=== PATIENT | female | born 1945 ===

== ENCOUNTER 2017-08-20 09:23 | Inpatient (IN) | payer MEDICARE, MEDICAID ==
[2017-08-20 09:23] VITALS: BMI 26.2
[2017-08-20 12:09] LABS: BASO # 0.1 K/uL (0.0-0.2); EOS # 0.1 K/uL (0.0-0.7); HEMOGLOBIN 13.8 g/dL (11.0-16.0); LYMPH # 1.8 K/uL (1.0-4.3); LYMPH % 21.4 % (20.0-40.0); MEAN CELL VOLUME 78.2 fL (81.0-99.0); MEAN CORPUSCULAR HEMOGLOBIN 25.9 pg (27.0-31.0); MEAN CORPUSCULAR HGB CONC 33.1 g/dL (33.0-37.0); MEAN PLATELET VOLUME 7.5 fL (7.2-11.7); MONO # 0.3 K/uL (0.0-0.8); NEUT % 72.6 % (50.0-75.0); RBC 5.34 Mil/uL (3.80-5.20); RED CELL DISTRIBUTION WIDTH 15.3 % (11.5-14.5); WHITE BLOOD COUNT 8.3 K/uL (4.8-10.8)
[2017-08-20 12:18] LABS: SQUAMOUS EPITHIAL 1 /hpf (0-5); URINE BILIRUBIN NEGATIVE (NEGATIVE); URINE BLOOD NEGATIVE (NEGATIVE); URINE CLARITY Clear (Clear); URINE COLOR Straw (YELLOW); URINE GLUCOSE (UA) NORMAL (Normal); URINE LEUKOCYTE ESTERASE NEG Leu/uL (Negative); URINE NITRATE NEGATIVE (NEGATIVE); URINE PROTEIN NEGATIVE (NEGATIVE); URINE UROBILINOGEN NORMAL mg/dL (0.2-1.0)
--- NOTE | 2017-08-20 12:39 | RAD ---
HISTORY: abd pain COMPARISON: Chest x-ray performed 10/22/15 TECHNIQUE: Chest PA and lateral FINDINGS: LUNGS: Mild pulmonary venous congestion. Please note that chest x-ray has limited sensitivity for the detection of pulmonary masses. PLEURA: Small left pleural effusion. No definite pneumothorax . CARDIOVASCULAR: Mild cardiomegaly. Ectatic aorta. Atherosclerotic calcifications. OSSEOUS STRUCTURES: Osseous demineralization. Degenerative changes. VISUALIZED UPPER ABDOMEN: Unremarkable. OTHER FINDINGS: None. IMPRESSION: Small left pleural effusion. Mild pulmonary venous congestion.
--- NOTE | 2017-08-20 12:44 | C.PDOC ---
History Of Present Illness 71 YO female w/PMHx of HTN, ventral hernia, was seen by few days ago and sent to ED for further evaluation of abdominal pain. Pt reports, "had hernia repair few yesterday ago". Pt sts, developed mild intermittent abdominal pain around umbilicus. Otherwise, pt denies fever, chills, CP, SOB, dyspnea, diaphoresis, palpitation, food intolerance, V/D, back pain, UTI sx. As per family, pt had medical clearance and was sent to ED by for possible surgical repair. BP noted high on triage, pt admits, " very nervous now", took her BP medication at home [employer]. Time Seen by Provider: 08/20/17 10:22 Chief Complaint (Nursing): Abdominal Pain History Per: Patient, Family Past Medical History Reviewed: Historical Data, Nursing Documentation, Vital Signs Vital Signs: Last Vital Signs Temp 97.9 F 08/20/17 17:14 Pulse 72 08/20/17 18:00 Resp 15 08/20/17 18:00 BP 150/78 08/20/17 18:00 Pulse Ox 99 08/20/17 18:00 - Medical History PMH: Anxiety, Asthma, HTN Surgical History: Hernia Repair (ventral) - [facility] Procedures REPAIR ABDOMINAL WALL, OPEN APPROACH (10/27/15) Family History: States: Unknown Family Hx - Social History Hx Tobacco Use: No Hx Alcohol Use: No Hx Substance Use: No - Immunization History Hx Tetanus Toxoid Vaccination: No Hx Influenza Vaccination: Yes Hx Pneumococcal Vaccination: Yes Review Of Systems Except As Marked, All Systems Reviewed And Found Negative. Constitutional: Negative for: Fever, Chills ENT: Negative for: Throat Pain Cardiovascular: Negative for: Chest Pain, Palpitations, Edema, Light Headedness Respiratory: Negative for: Cough, Shortness of Breath Gastrointestinal: Positive for: Abdominal Pain. Negative for: Nausea, Vomiting , Diarrhea, Constipation, Melena, Hematochezia, Hematemesis Genitourinary: Negative for: Dysuria, Frequency Musculoskeletal: Negative for: Neck Pain, Back Pain Skin: Negative for: Rash Neurological: Negative for: Altered Mental Status Physical Exam - Physical Exam Appears: Well, Non-toxic, No Acute Distress Skin: Normal Color, Warm, Dry, No Rash Head: Normacephalic Eye(s): bilateral: PERRL Nose: No Discharge Oral Mucosa: Moist Throat: No Drooling Neck: Trachea Midline, Supple Cardiovascular: Rhythm Regular Respiratory: No Decreased Breath Sounds, No Accessory Muscle Use, No Stridor, No Wheezing Gastrointestinal/Abdominal: Soft, Tenderness (mild periumbilical), No Distention , No Guarding, Hernia (non-reducable ventral) Back: No CVA Tenderness Extremity: Normal ROM, No Deformity, No Swelling Neurological/Psych: Oriented x3, Normal Speech ED Course And Treatment - Laboratory Results Result Diagrams: 08/20/17 12:01 08/20/17 12:01 ECG: Interpreted By Me, Viewed By Me Interpretation Of ECG: SR@72/min,LAD, T wave inversion in III, AVF, V4-6, no acute ST-T changes. O2 Sat by Pulse Oximetry: 97 Pulse Ox Interpretation: Normal - Radiology CXR: Interpreted by Me, Viewed By Me, Read By Radiologist (small left pleural effusion) Progress Note: Blood work review and appears without acute abnormalities. case discussed with and admission to his service recommend. Disposition - Disposition Disposition: HOSPITALIZED Disposition Time: 12:51 Condition: STABLE - Clinical Impression Clinical Impression: Incarcerated ventral hernia
[2017-08-20 13:00] LABS: ALB/GLOB RATIO 1.1 (1.0-2.1); ALBUMIN 4.5 g/dL (3.5-5.0); ALT/SGPT 21 U/L (9-52); AST/SGOT 29 U/L (14-36); BLOOD UREA NITROGEN 7 mg/dL (7-17); CALCIUM 9.4 mg/dl (8.6-10.4); GFR AFRICAN-AMERICAN > 60; GFR NON-AFRICAN AMERICAN > 60
[2017-08-20 13:14] LABS: LIPASE 55 U/L (23-300)
[2017-08-20] MEDS ORDERED: Lactated Ringer's 1,000 ML IV ONE ×2 (15:19)
[2017-08-20] MEDS ORDERED: Lidocaine 1% Inj (20ml) ONE (15:26)
[2017-08-20] MEDS ORDERED: ceFAZolin IV 1 gm in Dextrose 0 GM/0 ML BAG IVPB ONE (15:26)
[2017-08-20] MEDS ORDERED: ceFAZolin IV 2 gm in Dextrose 2 GM/50 ML BAG IVPB ONE (15:26)
[2017-08-20] MEDS ORDERED: Bupivacaine HCl 0.25% PF (10 ml) Inj ONE (15:26)
[2017-08-20] MEDS ORDERED: Propofol 10 mg/ml Inj (20 ML) ONE (16:00)
[2017-08-20] MEDS ORDERED: Lidocaine Hydrochloride 5 ML INJ ONE (16:01)
[2017-08-20] MEDS: HYDROmorphone 0.5 mg/0.5 ml ISec IVP PRN ×3 (17:33→19:35)
[2017-08-20] MEDS ORDERED: Neostigmine Methylsulfate 3mg/3ml Syringe IV ONE (17:37)
[2017-08-20] MEDS: Dextrose 5%/0.45% NS 1,000 ML IV SCH (19:30)
[2017-08-20] MEDS: Oxycodone/Acetaminophen 5/325 mg Tab PO PRN (21:23)
[2017-08-20] MEDS ORDERED: Potassium Chloride 20 mEq/15 ml LIQ UD PO ONE (21:33)
[2017-08-20 21:44] VITALS: RESP 20
[2017-08-20] MEDS: Enoxaparin 30 mg Syringe SC SCH (22:30)
--- NOTE | 2017-08-21 01:56 | CP.PCM.CON ---
<Kemar Talamantes - Last Filed: 08/21/17 01:52> History of Present Illness - History of Present Illness History of Present Illness: History provided with help of patient's daughter at bedside. Patient is a 71 year old female who is s/p ventral hernia repair today. Patient saw Dr. Clark in office and was sent to the ED for a possible hernia repair. She had a previous incarcerated hernia repair without mesh in October [address] Clark. She subsequently developed another hernia, saw Dr. Clark in office recently and was told that she needs it repaired. She denies any preceding symptoms. Patient denies fever, chills, SOB, cough, chest pain, palpitations, abdominal pain, nausea, vomiting, urinary changes. Last bowel movement was 2 days ago; melena/hematochezia. Patient has a history of anxiety but denies anxiety at present. Patient had an influenza shot 1 month ago. PMD: Dr. Willams PMH: HTN, anxiety PSH: x 2; incarcerated hernia repair w/o mesh October 2015; ventral hernia repair w/ mesh July 2017 Medications: Diltiazem 240mg daily; Xanax (unknown dose) 1 tab a few times per week as needed for anxiety Allergies: denies Family History: Mother at age 94 with no medical problems; Father at age 65 of [place]; 2 healthy children; no family history of CVA/CA Social History: originally from [facility]; denies current/prior tobacco use; denies current/prior ETOH; denies current/prior recreational drug use; ; lives with daughter Code status: full code No advance directive In the event that she is unable to make health care decisions for herself, patient wants her daughter Mynor Wilder to make decisions for her ([phone]) Review of Systems - Review of Systems All systems: reviewed and no additional remarkable complaints except (as stated in HPI) Past Patient History - Past Medical History & Family History Past Medical History?: Yes - Past Social History Smoking Status: Never Smoked - CARDIAC Hx Hypertension: Yes - PULMONARY Hx Asthma: Yes - NEUROLOGICAL Hx Dizziness: Yes - MUSCULOSKELETAL/RHEUMATOLOGICAL Hx Falls: No - PSYCHIATRIC Hx Anxiety: Yes Hx Substance Use: No - SURGICAL HISTORY Hx Surgeries: Yes Hx Section: Yes Hx Herniorrhaphy: Yes (VENTRAL HERNIA REPAIR(10/27/15)) - ANESTHESIA Hx Anesthesia: Yes Hx Anesthesia Reactions: No Hx Malignant Hyperthermia: No Meds Allergies/Adverse Reactions: Allergies Allergy/AdvReac Type Severity Reaction Status Date / Time No Known Allergies Allergy Verified 07/05/17 08:17 - Medications Medications: Current Medications Docusate Sodium (Colace) 100 mg PO BID COUNTS INCLUDE 234 BEDS AT THE [facility] Enoxaparin Sodium (Lovenox) 30 mg SC 1000,2200 COUNTS INCLUDE 234 BEDS AT THE [facility] Last Admin: 08/20/17 22:30 Dose: Not Given Dextrose/Sodium Chloride (Dextrose 5%/0.45% Ns 1000 Ml) 1,000 mls @ 60 mls/hr IV .[id number] COUNTS INCLUDE 234 BEDS AT THE [facility] Last Admin: 08/20/17 19:30 Dose: 100 mls Cefazolin Sodium 1,000 mg/ (Sodium Chloride) 100 mls @ 100 mls/hr IVPB Q8H COUNTS INCLUDE 234 BEDS AT THE [facility] Last Admin: 08/21/17 01:45 Dose: 100 mls/hr Ondansetron HCl (Zofran Inj) 4 mg IVP Q6 PRN PRN Reason: Nausea/Vomiting Oxycodone/Acetaminophen (Percocet 5/325 Mg Tab) 2 tab PO Q4H PRN PRN Reason: pain Stop: 08/23/17 17:08 Last Admin: 08/20/17 21:23 Dose: 2 tab Pantoprazole Sodium (Protonix Inj) 40 mg IVP DAILY COUNTS INCLUDE 234 BEDS AT THE [facility] Physical Exam - Constitutional Appears: Well, No Acute Distress - Head Exam Head Exam: ATRAUMATIC, NORMAL INSPECTION - Eye Exam Eye Exam: EOMI, PERRL - ENT Exam ENT Exam: Mucous Membranes Moist - Neck Exam Neck exam: Positive for: Normal Inspection - Respiratory Exam Respiratory Exam: Clear to Auscultation Bilateral, NORMAL BREATHING PATTERN. absent: Rales, Rhonchi, Wheezes - Cardiovascular Exam Cardiovascular Exam: REGULAR RHYTHM, +S1, +S2. absent: JVD, Systolic Murmur - GI/Abdominal Exam GI & Abdominal Exam: Normal Bowel Sounds, Soft, Tenderness Additional comments: horizontal dressing across mid-abdomen that is C/D/I with no bleeding or purulence noted. - Extremities Exam Extremities exam: Positive for: normal inspection - Neurological Exam Neurological exam: Oriented x3 - Skin Skin Exam: Intact, Normal Color, Warm Results - Vital Signs Recent Vital Signs: Last Vital Signs Temp 98 F 08/20/17 21:42 Pulse 102 H 02/26/18 21:42 Resp 20 08/20/17 21:42 BP 117/62 08/20/17 21:42 Pulse Ox 96 08/20/17 21:42 - Labs Result Diagrams: 08/20/17 12:01 08/20/17 12:01 Labs: Laboratory Results - last 24 hr 08/20/17 08/20/17 08/20/17 12:01 12:01 12:01 WBC 8.3 RBC 5.34 H Hgb 13.8 Hct 41.7 MCV 78.2 L MCH 25.9 L MCHC 33.1 RDW 15.3 H Plt Count 456 H MPV 7.5 Neut % (Auto) 72.6 Lymph % (Auto) 21.4 Elliott % (Auto) 4.0 Eos % (Auto) 1.0 Baso % (Auto) 1.0 Neut # (Auto) 6.0 Lymph # (Auto) 1.8 Elliott # (Auto) 0.3 Eos # (Auto) 0.1 Baso # (Auto) 0.1 Sodium 138 Potassium 3.3 L Chloride 98 Carbon Dioxide 26 Anion Gap 17 BUN 7 Creatinine 0.6 L Est GFR ( Amer) > 60 Est GFR (Non-Af Amer) > 60 Random Glucose 118 H Calcium 9.4 Total Bilirubin 1.5 H AST 29 ALT 21 Alkaline Phosphatase 106 Total Protein 8.6 H Albumin 4.5 Globulin 4.1 H Albumin/Globulin Ratio 1.1 Lipase 55 Urine Color Straw Urine Clarity Clear Urine pH 7.0 Ur Specific [place] 1.012 Urine Protein Negative Urine Glucose (UA) Normal Urine Ketones 1+ H Urine Blood Negative Urine Nitrate Negative Urine Bilirubin Negative Urine Urobilinogen Normal Ur Leukocyte Esterase Neg Urine WBC (Auto) 1 Urine RBC (Auto) < 1 Ur Squamous Epith Cells 1 Assessment & Plan - Assessment and Plan (Free Text) Assessment: 71 year old female s/p ventral hernia repair, general medicine consulted for medical management: S/P Ventral Hernia Repair Management per surgery Dr. Clark Cefazolin 1000mg IVPB Q8H Dextrose/Sodium Chloride 1000mL IV [id number] Zofran 4mg IVP Q6H prn Percocet 5/325 2 tab PO Q4H prn Colace 100mg PO BID Small Pleural Effusion on CXR No SOB, cough, lungs clear on exam CXR shows small left pleural effusion HTN Continue home medications: Diltiazem 240mg PO daily Hypokalemia Repleted with Potassium Chloride 20 mEq once Follow-up AM labs Elevated Glucose No hx of DM Accuchecks ACHS Prophylaxis GI: Pantoprazole (Protonix) 40mg IVP daily DVT: SCDs; Enoxaparin (Lovenox) 30mg SC Heart healthy Diet <Guillen,Franklin Holcomb - Last Filed: 08/21/17 06:02> Meds - Medications Medications: Current Medications Docusate Sodium (Colace) 100 mg PO BID COUNTS INCLUDE 234 BEDS AT THE [facility] Enoxaparin Sodium (Lovenox) 30 mg SC 1000,2200 COUNTS INCLUDE 234 BEDS AT THE [facility] Last Admin: 08/20/17 22:30 Dose: Not Given Dextrose/Sodium Chloride (Dextrose 5%/0.45% Ns 1000 Ml) 1,000 mls @ 60 mls/hr IV .[id number] COUNTS INCLUDE 234 BEDS AT THE [facility] Last Admin: 08/20/17 19:30 Dose: 100 mls Cefazolin Sodium 1,000 mg/ (Sodium Chloride) 100 mls @ 100 mls/hr IVPB Q8H COUNTS INCLUDE 234 BEDS AT [facility] Last Admin: 08/21/17 01:45 Dose: 100 mls/hr Ondansetron HCl (Zofran Inj) 4 mg IVP Q6 PRN PRN Reason: Nausea/Vomiting Oxycodone/Acetaminophen (Percocet 5/325 Mg Tab) 2 tab PO Q4H PRN PRN Reason: pain Stop: 08/23/17 17:08 Last Admin: 08/20/17 21:23 Dose: 2 tab Pantoprazole Sodium (Protonix Inj) 40 mg IVP DAILY COUNTS INCLUDE 234 BEDS AT THE [facility] Results - Vital Signs Recent Vital Signs: Last Vital Signs Temp 97.9 F 08/21/17 00:05 Pulse 66 08/21/17 00:05 Resp 20 08/21/17 00:05 BP 111/66 08/21/17 00:05 Pulse Ox 96 08/21/17 00:05 - Labs Result Diagrams: 08/20/17 12:01 08/20/17 12:01 Labs: Laboratory Results - last 24 hr 08/20/17 08/20/17 08/20/17 12:01 12:01 12:01 WBC 8.3 RBC 5.34 H Hgb 13.8 Hct 41.7 MCV 78.2 L MCH 25.9 L MCHC 33.1 RDW 15.3 H Plt Count 456 H MPV 7.5 Neut % (Auto) 72.6 Lymph % (Auto) 21.4 Elliott % (Auto) 4.0 Eos % (Auto) 1.0 Baso % (Auto) 1.0 Neut # (Auto) 6.0 Lymph # (Auto) 1.8 Elliott # (Auto) 0.3 Eos # (Auto) 0.1 Baso # (Auto) 0.1 Sodium 138 Potassium 3.3 L Chloride 98 Carbon Dioxide 26 Anion Gap 17 BUN 7 Creatinine 0.6 L Est GFR ( Amer) > 60 Est GFR (Non-Af Amer) > 60 Random Glucose 118 H Calcium 9.4 Total Bilirubin 1.5 H AST 29 ALT 21 Alkaline Phosphatase 106 Total Protein 8.6 H Albumin 4.5 Globulin 4.1 H Albumin/Globulin Ratio 1.1 Lipase 55 Urine Color Straw Urine Clarity Clear Urine pH 7.0 Ur Specific [place] 1.012 Urine Protein Negative Urine Glucose (UA) Normal Urine Ketones 1+ H Urine Blood Negative Urine Nitrate Negative Urine Bilirubin Negative Urine Urobilinogen Normal Ur Leukocyte Esterase Neg Urine WBC (Auto) 1 Urine RBC (Auto) < 1 Ur Squamous Epith Cells 1 Assessment & Plan - Date & Time Date: 08/21/17 (I have seen and examined the patient. I agree with the findings and plan of care as documented by Dr. Talamantes. Patient s/p ventral hernia repair. To be managed by primary surgeon. Medicine consulted for history of hypertension. Continue home meds and monitor. Adjust as necessary. Monitor for acute changes.) Time: 06:01 Attending/Attestation - Attestation I have personally seen and examined this patient.: Yes I have fully participated in the care of the patient.: Yes I have reviewed all pertinent clinical information: Yes
--- NOTE | 2017-08-21 05:21 | OP ---
PROCEDURE DATE: 08/20/2017 PREOPERATIVE DIAGNOSIS: Incarcerated recurrent incisional hernia. POSTOPERATIVE DIAGNOSIS: Incarcerated recurrent incisional hernia. PROCEDURE PERFORMED: Repair of incarcerated recurrent incisional hernia with extensive lysis of adhesions, and omentectomy. SURGEON: Raghavendra Clark MD ANESTHESIA: General. ESTIMATED BLOOD LOSS: 80 mL. POSTOPERATIVE CONDITION: Stable. INDICATIONS FOR SURGERY: This is a 71-year-old female 2 years status post repair of a midline ventral hernia. She has sustained a recurrence and now has a large midline hernia. GROSS FINDINGS: There was a large midline hernia inside containing bowel and omentum with multiple adhesions. The adhesions had to be take down before the hernia sac could be excised and the repair could be accomplished. A 9 cm polypropylene mesh was used for placement. DESCRIPTION OF PROCEDURE: The patient was taken to the operating room, general anesthesia administered. The abdomen was prepped and draped. A generous midline transverse incision was made over the large hernia sac. Hernia sac was daily immediately encountered. Hernia sac was cribriform. The left side of the hernia was cribriform in nature, so the hernia sac was dissected free down to its fascial edges and transected, and meanwhile the cribriform hymen was connected using the Bovie. There was multiple adhesions within the hernia sac and also to the abdominal wall. These were taken down sharply using Metzenbaum scissors. Small serosal tears, transverse colon, and bowel repaired with silk. A mesenteric blood vessel was also repaired. A portion of the omentum was removed which had severe adhesions and was bleeding. The abdomen was irrigated with saline and a 9 mm polypropylene mesh was selected for grafting. It was sutured in an inlay fashion using #1 Novafil suture. The subcutaneous tissue was irrigated with copious amounts of saline solution and the skin was closed with interrupted subcu 2-0 Monocryl and skin clips. The patient tolerated the procedure well, returned to recovery room in stable condition. Raghavendra Clark MD
[2017-08-21 06:26] LABS: HEMOGLOBIN 12.4 g/dL (11.0-16.0); MEAN CELL VOLUME 77.7 fL (81.0-99.0); MEAN CORPUSCULAR HEMOGLOBIN 25.9 pg (27.0-31.0); MEAN CORPUSCULAR HGB CONC 33.3 g/dL (33.0-37.0); MEAN PLATELET VOLUME 7.1 fL (7.2-11.7); RBC 4.81 Mil/uL (3.80-5.20); RED CELL DISTRIBUTION WIDTH 14.9 % (11.5-14.5); WHITE BLOOD COUNT 11.2 K/uL (4.8-10.8)
[2017-08-21 06:45] LABS: BLOOD UREA NITROGEN 7 mg/dL (7-17); CALCIUM 8.5 mg/dl (8.6-10.4); GFR AFRICAN-AMERICAN > 60; GFR NON-AFRICAN AMERICAN > 60
[2017-08-21] MEDS ORDERED: diltiaZEM 240 mg/24 Hours CD Cap PO SCH (10:00)
[2017-08-21] MEDS: Enoxaparin 30 mg Syringe SC SCH ×2 (11:36→21:26)
[2017-08-21] MEDS: diltiaZEM 240 mg/24 Hours CD Cap PO SCH (11:38)
[2017-08-21] MEDS: Dextrose 5%/0.45% NS 1,000 ML IV SCH (11:38)
[2017-08-21] MEDS: Oxycodone/Acetaminophen 5/325 mg Tab PO PRN (15:45)
--- NOTE | 2017-08-21 15:55 | CP.PCM.PN ---
<Henrry Frederick Nargis - Last Filed: 08/21/17 15:52> Subjective - Date & Time of Evaluation Date of Evaluation: 08/21/17 Time of Evaluation: 07:20 - Subjective Subjective: Medicine progress note ( Dr. Rodriguez's service) Patient was seen and examined at bedside with daughter at bedside. Patient reports that she is doing well but with very mild pain, which is appropriate as she is status post ventral-hernia repair POD#1. Patient denies chest pain, SOB, palpitations, nausea, vomiting. Patient is passing flatus and was able to tolerate liquid diet this am. Objective - Vital Signs/Intake and Output Vital Signs (last 24 hours): Temp Pulse Resp BP Pulse Ox 98.6 F 78 20 146/76 96 08/21/17 07:34 08/21/17 07:34 08/21/17 07:34 08/21/17 07:34 08/21/17 07:34 Intake and Output: 08/21/17 08/21/17 06:59 18:59 Intake Total 320 680 Balance 320 680 - Medications Medications: Current Medications Diltiazem HCl (Cardizem Cd) 240 mg PO DAILY [facility] Last Admin: 08/21/17 11:38 Dose: 240 mg Docusate Sodium (Colace) 100 mg PO BID [facility] Last Admin: 08/21/17 11:36 Dose: 100 mg Enoxaparin Sodium (Lovenox) 30 mg SC 1000,2200 [facility] Last Admin: 08/21/17 11:36 Dose: 30 mg Cefazolin Sodium 1,000 mg/ (Sodium Chloride) 100 mls @ 100 mls/hr IVPB Q8H [facility] Last Admin: 08/21/17 10:16 Dose: 100 mls/hr Ondansetron HCl (Zofran Inj) 4 mg IVP Q6 PRN PRN Reason: Nausea/Vomiting Oxycodone/Acetaminophen (Percocet 5/325 Mg Tab) 2 tab PO Q4H PRN PRN Reason: pain Stop: 08/23/17 17:08 Last Admin: 08/20/17 21:23 Dose: 2 tab Pantoprazole Sodium (Protonix Inj) 40 mg IVP DAILY [facility] Last Admin: 08/21/17 11:36 Dose: 40 mg - Labs Labs: 08/21/17 06:12 08/21/17 06:12 - Constitutional Appears: Well, No Acute Distress - Head Exam Head Exam: ATRAUMATIC, NORMAL INSPECTION - Eye Exam Eye Exam: EOMI, Normal appearance - ENT Exam ENT Exam: Mucous Membranes Moist - Respiratory Exam Respiratory Exam: Clear to Ausculation Bilateral, NORMAL BREATHING PATTERN. absent: Rhonchi, Wheezes, Respiratory Distress - Cardiovascular Exam Cardiovascular Exam: REGULAR RHYTHM, +S1, +S2 - GI/Abdominal Exam GI & Abdominal Exam: Soft, Normal Bowel Sounds Additional comments: S/P ventral hernia repair, POD #1 Dressing is clean, dry and intact - Extremities Exam Extremities Exam: Normal Inspection. absent: Calf Tenderness, Pedal Edema - Neurological Exam Neurological Exam: Alert, Awake, Oriented x3 - Psychiatric Exam Psychiatric exam: Normal Affect Assessment and Plan (1) Status post repair of ventral hernia Assessment & Plan: General surgery, Dr. Clark on board POD #1 * Management as per surgery * Cefazolin 1,000mg IV q8h * Percocet 2 tabs PO Q4H PRN * Zofran 4mg IVP Q6H PRN Status: Acute (2) HTN (hypertension) Assessment & Plan: * Cardizem 240mg PO daily Status: Acute (3) Pleural effusion Assessment & Plan: Asymptomatic Chest X-ray (08/20/17) shows small left pleural effusion. Mild pulmonary venous congestion. Status: Acute (4) Prophylactic measure Assessment & Plan: GI: Pepcid 40mg IVP daily DVT: Lovenox 30mg SC and SCDs Disposition: Plans for discharge tomorrow as per general surgery All plans and management discussed with attending, Dr. Rodriguez Status: Acute <Mariela Rodriguez V - Last Filed: 08/21/17 22:05> Objective - Vital Signs/Intake and Output Vital Signs (last 24 hours): Temp Pulse Resp BP Pulse Ox 98.2 F 83 20 122/74 97 08/21/17 16:05 08/21/17 16:05 08/21/17 16:05 08/21/17 16:05 08/21/17 16:05 Intake and Output: 08/21/17 08/22/17 18:59 06:59 Intake Total 1530 Output Total 400 Balance 1130 - Medications Medications: Current Medications Diltiazem HCl (Cardizem Cd) 240 mg PO DAILY [facility] Last Admin: 08/21/17 11:38 Dose: 240 mg Docusate Sodium (Colace) 100 mg PO BID [facility] Last Admin: 08/21/17 17:34 Dose: 100 mg Enoxaparin Sodium (Lovenox) 30 mg SC 1000,2200 [facility] Last Admin: 08/21/17 21:26 Dose: 30 mg Cefazolin Sodium 1,000 mg/ (Sodium Chloride) 100 mls @ 100 mls/hr IVPB Q8H [facility] Last Admin: 08/21/17 17:31 Dose: 100 mls/hr Ondansetron HCl (Zofran Inj) 4 mg IVP Q6 PRN PRN Reason: Nausea/Vomiting Oxycodone/Acetaminophen (Percocet 5/325 Mg Tab) 2 tab PO Q4H PRN PRN Reason: pain Stop: 08/23/17 17:08 Last Admin: 08/21/17 15:45 Dose: 2 tab Pantoprazole Sodium (Protonix Inj) 40 mg IVP DAILY [facility] Last Admin: 08/21/17 11:36 Dose: 40 mg - Labs Labs: 08/21/17 06:12 08/21/17 06:12 Attending/Attestation - Attestation I have personally seen and examined this patient.: Yes I have fully participated in the care of the patient.: Yes I have reviewed all pertinent clinical information, including history, physical exam and plan: Yes Notes (Text): Patient seen, examined and case discussed with medical editor. Patient seen with daughter at [facility] this morning about 11AM. Patient reports she is doing well. +flatus. Patient denies acute complaints, denies chest pain, denies shortness of breathe, reports mild abdominal pain, denies nausea, denies vomitting. Patient's abdominal dressing are clean/dry/intact. Surgery has start her dvt ppx chemical anticoagulation, pain medications as needed and antibiotic coverage. Patient's blood pressure is controlled with her blood pressure medication. Medicine is on Consult Assessment/Plan (1) Status post repair of ventral hernia Assessment & Plan: * General surgery, Dr. Clark on board * POD #1 * Management as per surgery including preoperative/intraoperative/postoperative * Chemical anticoagulation per surgery * Pain medications per surgery * Cefazolin 1,000mg IV q8h * Percocet 2 tabs PO Q4H PRN * Zofran 4mg IVP Q6H PRN * Diet advanced by surgery from liquid to heart healthy diet Status: Acute (2) HTN (hypertension) Assessment & Plan: * Cardizem 240mg PO daily Status: Acute (3) Pleural effusion Assessment & Plan: * Asymptomatic * Chest X-ray (08/20/17) shows small left pleural effusion. Mild pulmonary venous congestion. Status: Acute (4) Prophylactic measure Assessment & Plan: * GI: Pepcid 40mg IVP daily * DVT: Lovenox 30mg SC and SCDs Disposition: Plans for discharge tomorrow as per general surgery if afebrile and tolerating PO Status: Acute
[2017-08-22 08:45] VITALS: BP 151/77; PULSE 90; TEMP 98.4; O2SAT 96
[2017-08-22 08:50] LABS: HEMOGLOBIN 12.5 g/dL (11.0-16.0); MEAN CELL VOLUME 77.8 fL (81.0-99.0); MEAN CORPUSCULAR HEMOGLOBIN 25.9 pg (27.0-31.0); MEAN CORPUSCULAR HGB CONC 33.2 g/dL (33.0-37.0); RBC 4.82 Mil/uL (3.80-5.20); RED CELL DISTRIBUTION WIDTH 15.5 % (11.5-14.5); WHITE BLOOD COUNT 11.5 K/uL (4.8-10.8)
[2017-08-22 09:04] LABS: BLOOD UREA NITROGEN 5 mg/dL (7-17); CALCIUM 8.8 mg/dl (8.6-10.4); GFR AFRICAN-AMERICAN > 60; GFR NON-AFRICAN AMERICAN > 60
[2017-08-22] MEDS ORDERED: Potassium Chloride 20 mEq ER Tab PO ONE (10:50)
[2017-08-22] MEDS: Enoxaparin 30 mg Syringe SC SCH (11:00)
[2017-08-22] MEDS: diltiaZEM 240 mg/24 Hours CD Cap PO SCH (11:00)
[2017-08-23] MEDS ORDERED: Potassium Chloride 20 mEq ER Tab PO ONE (10:00)
--- NOTE | 2017-08-23 22:37 | CARD ---
APPROVED REPORT EKG Measurement Heart [id number] <Conclusion> Normal sinus rhythm Minimal voltage criteria for LVH, may be normal variant Nonspecific T wave abnormality Abnormal ECG
== END 2017-08-22 13:44 | disposition home or self-care (01) | DRG 355 ==
LOC: C.ER 09:23 → C.9E 12:50 → C.3T 20:48
PROVIDERS: ADMIT Surgery; ATTEND Surgery
PROC: 0DBU0ZZ Excision of Omentum, Open Approach (ICD-10-PCS; 2017-08-20)
PROC: 0WUF0JZ Supplement Abdominal Wall with Synthetic Substitute, Open Approach (ICD-10-PCS; principal; 2017-08-20 12:30)
DX: K43.0 Incisional hernia with obstruction, without gangrene (principal); E87.6 Hypokalemia; F41.9 Anxiety disorder, unspecified; I10 Essential (primary) hypertension; R73.9 Hyperglycemia, unspecified